=== PATIENT | female | born 1990 | race Caucasian/White ===

== ENCOUNTER 2020-04-23 05:43 | Inpatient (IN) ==
--- NOTE | 2020-04-22 13:46 | History & Physical Report ---
Date of Service April 22, 2020 39 weeks and 6 days discovered to be breech presentation patient declined version which I think is reasonable as she is essentially 40 weeks I recommended section we will perform this tomorrow Assessment & Plan (1) Breech presentation: Breech presentation discovered at 39 weeks and 6 days I have recommended she is agreeable normally I would provide COVID test per hospital policy however since this will be done within the next 24 hours and the cover test will be back I will not order if the rapid test we can do this tomorrow morning however our [facility] does not have any rapid tests as of this moment section. The patient was counseled to the nature of the procedure including alternatives such as labor. Risks were discussed including bleeding infection injury to bowel bladder ureter vessels and even baby. Deep Vein thrombosis, pulmonary embolus discussed. Breakdown of incision reviewed. Deep vein thrombosis pulmonary embolus hernia and failure of the incision to heal were discussed Patient verbalized understanding of this and was given ample time to ask questions History of Present Illness Primary Care Provider: Niko Whitman Allergies Allergy/AdvReac Type Severity Reaction Status Date / Time animal dander Allergy Intermediate ITCHY Verified 04/22/20 09:44 EYES, SNEEZING, CONGESTION pollen extracts Allergy Intermediate ITCHY Verified 04/22/20 09:44 EYES, SNEEZING, CONGESTION DUST Allergy Intermediate ITCHY Uncoded 04/22/20 09:44 EYES, SNEEZING, CONGESTION Home Medications Home Medications Medication Instructions Recorded Confirmed Type prenat.vits,jesse,[id number] 1 tab PO DAILY 10/06/19 04/22/20 History Patient History Medical History Chlamydia Varicella vaccination Surgical History S/P ACL repair S/P wisdom tooth extraction Family History Family/Other Cleft palate Social History Preferred Language: [place] Communication Ability: Effective Beliefs That Will Affect Care: None marital status: marital status details: Uriel Murphy (36) [phone] Current Living Situation: Spouse Current Living Situation Comment: lives with spouserupa current occupational status: employed current occupation: teacher [employer] [place] Feels Safe at Home: Yes Smoking Status: Never smoker Hx Alcohol Use: No Hx Substance Use: No Physical Exam Constitutional: WD/WN, vitals as above Respiratory: normal respiratory effort, lungs clear to auscultation Cardiovascular: RRR, no murmur, no edema Genitourinary: OB Exam Abdomen: + heart tones and + breech Coding Level of Care Code None Diagnoses Breech presentation O32.1XX0
[2020-04-23] MEDS ORDERED: SODIUM CHLORIDE 0.9% 250 ML IV PRN (05:51)
[2020-04-23] MEDS ORDERED: CITRIC ACID/SODIUM CITRATE 15 ML UDC PO SCH (06:00)
[2020-04-23] MEDS ORDERED: LR 15ML/HR IV SCH (06:00)
[2020-04-23] MEDS ORDERED: CEFAZOLIN 2000MG 2,000 MG/15 ML SYR IV SCH (06:00)
[2020-04-23 06:12] LABS: Basophils # (auto) 0.01 K/uL (0-0.2); Basophils % (auto) 0.1 %; Eosinophils # (auto) 0.16 K/uL (0-0.5); Eosinophils % (auto) 1.9 %; Hematocrit (blood only) 35.5 % (37-47); Hemoglobin 11.8 g/dL (12.0-16.0); Immature Granulocytes # (auto) 0.06 K/uL (0.00-0.02); Immature Granulocytes % (auto) 0.7 %; Lymphocytes # (auto) 2.17 K/uL (1.2-3.4); Lymphocytes % (auto) 25.8 %; Mean Corpuscular Hemoglobin 27.1 pg (25-34); Mean Corpuscular Volume 81.6 fL (80-100); Mean Platelet Volume 10.2 fL (7.4-10.4); Monocytes # (auto) 0.53 K/uL (0.11-0.59); Monocytes % (auto) 6.3 %; Neutrophils # (auto) 5.48 K/uL (1.4-6.5); Neutrophils % (auto) 65.2 %; Platelet Count 220 K/uL (130-400); RDW Coefficient of Variation 12.9 % (11.5-14.5); RDW Standard Deviation 38.1 fL (36.4-46.3); Red Blood Count 4.35 M/uL (4.2-5.4); White Blood Count 8.41 K/uL (4.8-10.8)
[2020-04-23 06:25] LABS: Mean Corpuscular Hgb Conc 33.2 g/dL (32-36)
[2020-04-23] MEDS ORDERED: LACTATED RINGER'S 1,000 ML IV SCH ×2 (06:30→09:36)
[2020-04-23] MEDS ORDERED: fentaNYL citrate 100 MCG/2 ML VIAL ONE (07:12)
[2020-04-23] MEDS ORDERED: MoRPHine SULFATE PF 1 MG/ML 10 ML AMP/VIAL ONE (07:12)
--- NOTE | 2020-04-23 07:18 | History & Physical Bridge Note ---
Date of Service April 23, 2020 History & Physical Bridge Note I have examined the patient, reviewed the History & Physical and in the interval since the performance of the History & Physical I have noted the following changes of clinical significance: no changes noted
--- NOTE | 2020-04-23 07:21 | Anesthesiology Consultation ---
Date of Service April 23, 2020 Assessment & Plan (1) Encounter for pre-operative examination: Chart Review Chart Review: Acceptable Risk for Surgery and Patient NOT seen in Pre Admission Testing Consults Requested none ASA ASA2 Proposed Anesthesia Anesthesia Type: Spinal Risk / Benefits Reviewed With: PT / POA / Parent / Guardian, Accepts Plan and Informed Consent Obtained History Surgery Operation Date: 04/23/20 07:30 Proposed Procedures p Section - Yolanda Gordon MD, FACOG Height/Weight Height: 5 ft 5 in Weight: 76.204 kg Allergies Allergy/AdvReac Type Severity Reaction Status Date / Time animal dander Allergy Intermediate ITCHY Verified 04/22/20 09:44 EYES, SNEEZING, CONGESTION pollen extracts Allergy Intermediate ITCHY Verified 04/22/20 09:44 EYES, SNEEZING, CONGESTION DUST Allergy Intermediate ITCHY Uncoded 04/22/20 09:44 EYES, SNEEZING, CONGESTION Medications Home Medications Medication Instructions Recorded Confirmed Last Taken prenat.vits,jesse,kcr-[id number] 1 tab PO DAILY 10/06/19 04/22/20 1 Day Ago ~04/11/20 0800 Active Medications Generic Name Dose Route Start Last Admin Trade Name Freq PRN Reason Stop Dose Admin Lactated Ringer's 1,000 mls @ 125 mls/hr 04/23/20 06:30 04/23/20 07:11 Lr IV 05/23/20 06:29 125 mls/hr .Q8H MIKE Administration NPO Date Last Intake of Fluids: 04/22/20 Time Last Intake of Fluids: 22:00 Date Last Intake of Solids: 04/22/20 Time Last Intake of Solids: 19:00 Past Medical History Medical History Chlamydia Varicella vaccination Exercise / Class Metabolic Activity II 4-5 Yardwork/Stairs/Walk up hill Past Family History Family History Family/Other Cleft palate Past Surgical History Surgical History S/P ACL repair S/P wisdom tooth extraction Past Anesthesia History No Hx of Anesthesia Complications History of PONV No Hx of PONV Social History Smoking Status: Never smoker Do You Dip or Chew Tobacco: No Hx Alcohol Use: No Hx Substance Use: No substance use type: does not use Review of Systems Patient denies history of abnormal bleeding or bleeding disorder. Patient denies active use of anticoagulants other than low dose aspirin. Patient denies numbness, tingling or weakness in lower extremities. Patient denies active symptoms of GERD. Negative for chest pain or shortness of breath. Physical Exam Vital Signs Last Vital Signs Temp 36.8 C 04/23/20 06:09 Pulse 83 04/23/20 05:56 Resp 20 04/23/20 06:09 BP 121/72 04/23/20 05:56 Constitutional not obese (Gravid uterus) ENMT Mouth: no TMJ abnormality and oral opening not small Thyromental Distance: > or= 3.5 Finger Breadths Mallampati Class: II Neck normal visual inspection; neck extension not limited Respiratory normal respiratory effort Auscultation: lungs clear to auscultation bilaterally Cardiovascular Rate/Rhythm: regular rate and regular rhythm Heart Sounds: no murmur Neurologic moves all extremities Motor/Sensory: no sensory deficit Psychiatric Orientation: alert and oriented x 3 Testing Laboratory Results 04/23/20 05:59 Blood Type O Positive 04/23/20 05:59 Antibody Screen NEGATIVE 04/23/20 05:59
[2020-04-23] MEDS ORDERED: OXYTOCIN 10 UNITS/ML VIAL ONE (08:38)
[2020-04-23] MEDS ORDERED: DiphenhydrAMINE HCL 50 MG/ML VIAL ONE (08:38)
[2020-04-23 09:17] LABS: Base Excess Cord Arterial Bld -1.4 mEq/L (-9-1.8); CO2 Cord Arterial Blood 59 mmHg (39.1-73.5); HCO3 Cord Arterial Blood 27 mmol/L (19.7-28.5); PO2 Cord Arterial Blood 21 mmHg (4.1-31.7); pH Cord Arterial Blood 7.27 (7.1-7.38)
--- NOTE | 2020-04-23 09:20 | Operative Report ---
PG Post Operative Report Pre & Post Diagnosis Operation Date: 04/23/20 07:30 Pre-Op Diagnosis: Term ; breech presentation Post-Op Diagnosis: term breech presentation living male child at 0849 I identified the patient and participated in the time-out.: Yes Procedure Operation Date: 04/23/20 07:30 <No data on this case meets the specified criteria> Low transverse section Surgeon Yolanda Gordon MD, FACOG Personal Property Appraiser Dr. Lopez Estimated Blood Loss 500 Findings Consistent with Post-Op Diagnosis Specimens Cord blood cord gases Description of Procedure Regional anesthetic was given by anesthesia patient had a [place] catheter inserted by nursing patient was prepped and draped in supine position with a le ftward tilt preoperative antibiotics were given timeout performed Pickups with teeth were used to test the skin site and it was found adequate for incision scalpel used to make a Pfannenstiel incision cutting down through subcutaneous fat through the fascia fascia was then dissected laterally with the curved Alonzo's fascia was released superiorly and inferiorly from the rectus muscles with the curved Alonzo scissors, rectus muscle split peritoneal cavity entered in a superior location. Opening enlarged to allow exposure bladder retractor placed Metzenbaums used to dissect away the bladder flap low segment transverse incision made on the uterus with scalpel entry was done bluntly with the multiple effect evaporator operator's finger hysterotomy incision extended with the multiple effect evaporator operator's finger in the usual fashion baby was delivered then by grasping the feet as it was in footling breech position gentle traction was placed baby's back was guided to be anterior but was unable to deliver both arms by sweeping them against the chest and then deliver the baby's head without excessive extension mouth and nares then suctioned no excessive force live vigorous infant cord clamped and cut cord gases obtained cord blood obtained placenta removed manually within ensured all placenta removed with a moist lap sponge uterus exteriorized IV Pitocin had been started by anesthesia and uterine tone improved. The uterus was closed in 2 layers first layer and 0 Monocryl running locked second layer 0 Monocryl nonlocked after generous irrigation and suction of the cul-de-sac and bladder flap regions hemostasis was excellent uterus was placed back in the peritoneal cavity and hemostasis was excellent rectus muscles were inspected and found to be dry fascia closed with 0 Vicryl subcutaneous fat closed with 3-0 Vicryl prior to this subcutaneous fat was irrigated skin closed with 4-0 subcuticular Monocryl incision Steri-Stripped urine was clear at the end of the procedure Note there were no structural anomalies with the uterus or adnexa no septum no bicornuate uterus I attest to the content of the Intraoperative Record and any orders documented therein. Any exceptions are noted below.
[2020-04-23 09:21] LABS: Base Excess Cord Venous Blood -1.5 mEq/L (-7.7-1.9); Cord Venous Blood HCO3 24 mmol/L (18.4-26.8); Cord Venous Blood PCO2 45 mmHg (30.4-57.2); Cord Venous Blood PO2 31 mmHg (14.1-43.3); Cord Venous Blood pH 7.35 (7.20-7.44); Oxygen Sat Cord Arterial Blood < 60.0 % (<60)
[2020-04-23] MEDS ORDERED: SUPERCREAM 0.870% 15 GM JAR EXT PRN (09:36)
[2020-04-23] MEDS ORDERED: BENZOCAINE 20% AER SPR 82.5 GM CAN EXT PRN (09:36)
[2020-04-23] MEDS ORDERED: PROMETHAZINE HCL 25 MG in SODIUM CHLORIDE 0.9% 50 ML IV PRN (09:36)
[2020-04-23] MEDS ORDERED: HYDROCORTISONE ACETATE 25 MG SUPP PR PRN (09:36)
[2020-04-23] MEDS ORDERED: SENNA 8.6 MG TAB PO PRN (09:36)
[2020-04-23] MEDS ORDERED: ONDANSETRON INJ 2 MG/ML 2 ML VIAL IV PRN ×2 (09:36→09:49)
[2020-04-23] MEDS ORDERED: MAGNESIUM HYDROXIDE SUSP 30 ML UDC PO PRN (09:36)
[2020-04-23] MEDS ORDERED: NALOXONE HCL 0.08 MG in SYRINGE 1.8 ML IV PRN (09:49)
[2020-04-23] MEDS ORDERED: NALOXONE HCL 0.4 MG/1 ML VIAL/CARP IV PRN (09:49)
[2020-04-23] MEDS ORDERED: ACETAMINOPHEN 1000 MG/100 ML IV IV PRN (09:49)
[2020-04-23] MEDS ORDERED: NALOXONE HCL 1 MG in SODIUM CHLORIDE 0.9% 1000ML 1,000 ML IV PRN (09:49)
[2020-04-23] MEDS ORDERED: MoRPHine SULFATE PF 1 MG/ML 10 ML AMP/VIAL INT SPINAL ONE (09:49)
[2020-04-23] MEDS ORDERED: LACTATED RINGER'S 500 ML IV PRN (09:49)
[2020-04-23] MEDS ORDERED: HYDROmorphone INJ 1 MG/ML SYRINGE IV PRN (09:49)
[2020-04-23] MEDS ORDERED: DiphenhydrAMINE HCL 50 MG/ML VIAL IV PRN (09:49)
[2020-04-23] MEDS ORDERED: ePHEDrine sulfate 50 MG/ML AMP IV PRN ×2 (09:49→09:54)
[2020-04-23] MEDS ORDERED: KETOROLAC 30 MG/ML VIAL IV PRN (09:49)
[2020-04-23] MEDS ORDERED: ATROPINE SULFATE 0.1 MG/ML 10ML SYR IV PRN (09:54)
[2020-04-23] MEDS ORDERED: NO NARCOTICS OR SEDATIVES SCH (10:00)
[2020-04-23] MEDS ORDERED: SODIUM CHLORIDE 0.9% 1000ML 1,000 ML IV SCH (10:00)
--- NOTE | 2020-04-23 10:00 | Anesthesiology Progress Note ---
Date of Service April 23, 2020 Anesthesia Post Procedure Vital Signs Vital Signs: Temp Pulse Resp BP Pulse Ox 04/23/20 09:57 74 125/74 04/23/20 09:56 80 100 04/23/20 09:54 85 91 04/23/20 09:53 73 122/71 04/23/20 09:51 81 100 04/23/20 09:46 79 95 04/23/20 09:45 81 93 04/23/20 09:41 74 100 04/23/20 09:37 78 129/65 04/23/20 09:36 72 100 04/23/20 09:31 72 99 04/23/20 09:26 68 120/69 99 04/23/20 07:00 36.9 C 20 04/23/20 06:09 36.8 C 20 04/23/20 06:00 36.8 C 20 04/23/20 05:56 83 121/72 Transfer of Care Handoff Completed per policy Notes Mental Status: alert / awake / arousable and participated in evaluation Nausea / Vomiting: adequately controlled Pain: adequately controlled Airway Patency, RR, SpO2: stable & adequate BP & HR: stable & adequate Hydration State: stable & adequate Neuraxial Anesthesia: was administered and sensory block is resolving Anesthetic Complications: no major complications apparent and Pt Satisfied with anesthetic care
[2020-04-23] MEDS: OXYTOCIN 20 UNITS in LACTATED RINGER'S 1,000 ML IV SCH ×2 (10:22→18:27)
[2020-04-23] MEDS: SIMETHICONE 80 MG CHEW PO SCH ×2 (16:59→21:09)
[2020-04-23] MEDS: DOCUSATE SODIUM 100 MG CAP PO SCH (21:08)
[2020-04-24] MEDS ORDERED: KETOROLAC 30 MG/ML VIAL IV PRN (03:49)
[2020-04-24] MEDS ORDERED: ONDANSETRON INJ 2 MG/ML 2 ML VIAL IV PRN (03:49)
[2020-04-24] MEDS ORDERED: OXYCODONE/ACETAMINOPHEN 5mg/325mg TAB PO PRN (03:49)
[2020-04-24] MEDS ORDERED: ZOLPIDEM TARTRATE 5 MG TAB PO PRN (03:49)
[2020-04-24] MEDS ORDERED: DiphenhydrAMINE HCL 50 MG/ML VIAL IV PRN (03:49)
[2020-04-24] MEDS ORDERED: MEPERIDINE HCL 50 MG/ML CARP IV PRN (03:49)
[2020-04-24] MEDS ORDERED: DC INTRASPINAL MORPHINE ONE (03:49)
--- NOTE | 2020-04-24 07:18 | Obstetrical Progress Note ---
Date of Service April 24, 2020 Assessment & Plan (1) state: Postoperative from section patient meets discharge criteria as she is ambulating well tolerating an oral diet has minimal bleeding and no extremity pain. Subjective Ambulation: ambulating normally Voiding: no voiding problems Diet Tolerance:: regular diet Lochia:: Small Feeding Type:: breast feeding Current Pain Level(1-10): 2 Physical Exam Constitutional WD/WN, vitals as above Respiratory normal respiratory effort, lungs clear to auscultation Cardiovascular RRR, no murmur, no edema Results & Data ([facility]) Vital Signs (Past 12 Hours) Vital Signs Temp Pulse Resp BP Pulse Ox 04/24/20 05:49 98.6 F 77 18 119/80 04/24/20 03:10 16 98 04/24/20 02:10 16 98 04/24/20 01:10 16 98 04/24/20 00:50 98.1 F 76 18 127/85 98 04/23/20 22:00 18 99 04/23/20 21:10 18 99 04/23/20 20:00 18 99 04/23/20 19:50 98.1 F 77 18 132/77 99
[2020-04-24] MEDS: SIMETHICONE 80 MG CHEW PO SCH ×3 (08:34→20:47)
[2020-04-24] MEDS: PRENATAL VITAMIN 1 TAB PO SCH (08:34)
[2020-04-24] MEDS: DOCUSATE SODIUM 100 MG CAP PO SCH ×2 (08:42→20:47)
[2020-04-24] MEDS ORDERED: DIPHTHERIA/TETANUS/PERTUSSIS 0.5 ML SYR/VIAL IM ONE (09:00)
[2020-04-24 09:29] LABS: Basophils # (auto) 0.01 K/uL (0-0.2); Basophils % (auto) 0.1 %; Eosinophils # (auto) 0.07 K/uL (0-0.5); Eosinophils % (auto) 0.7 %; Hematocrit (blood only) 33.3 % (37-47); Hemoglobin 11.2 g/dL (12.0-16.0); Immature Granulocytes # (auto) 0.03 K/uL (0.00-0.02); Immature Granulocytes % (auto) 0.3 %; Lymphocytes # (auto) 1.56 K/uL (1.2-3.4); Mean Corpuscular Hemoglobin 27.2 pg (25-34); Mean Corpuscular Hgb Conc 33.6 g/dL (32-36); Mean Corpuscular Volume 80.8 fL (80-100); Mean Platelet Volume 9.9 fL (7.4-10.4); Monocytes # (auto) 0.37 K/uL (0.11-0.59); Monocytes % (auto) 3.6 %; Neutrophils # (auto) 8.38 K/uL (1.4-6.5); Neutrophils % (auto) 80.3 %; Platelet Count 208 K/uL (130-400); RDW Coefficient of Variation 13.1 % (11.5-14.5); Red Blood Count 4.12 M/uL (4.2-5.4); White Blood Count 10.42 K/uL (4.8-10.8)
[2020-04-24] MEDS: IBUPROFEN 600 MG TAB PO PRN ×2 (14:40→19:39)
[2020-04-24] MEDS ORDERED: bisacodyL 5 MG TABEC PO SCH (20:00)
[2020-04-25] MEDS: IBUPROFEN 600 MG TAB PO PRN ×2 (00:14→08:48)
[2020-04-25 05:48] LABS: Hematocrit (blood only) 30.4 % (37-47); Hemoglobin 10.2 g/dL (12.0-16.0)
--- NOTE | 2020-04-25 08:36 | Obstetrical Progress Note ---
Date of Service April 25, 2020 Assessment & Plan (1) state: satisfactory & post-op progress wishes to go home scripts sent to pharmacy listed follow up in 6 weeks Day #:: 2 Subjective Ambulation: ambulating normally Voiding: no voiding problems Passing Gas:: Yes Diet Tolerance:: regular diet Lochia:: Moderate Feeding Type:: breast feeding pain meds working well Review of Systems All systems reviewed & are unremarkable except as noted in HPI & below Physical Exam Constitutional WD/WN, vitals as above Gastrointestinal (Abdomen) Inspection/Auscultation: + abdominal surgical incision (dry & intact- no erythema) Psychiatric A+Ox3, euthymic affect Genitourinary OB Exam Abdomen: + fundal height Fundus: + firm and + relation to umbilicus (2 below U) Results & Data ([facility]) Vital Signs (Past 12 Hours) Vital Signs Temp Pulse Resp BP 04/25/20 00:05 98.1 F 75 16 126/79
[2020-04-25] MEDS: SIMETHICONE 80 MG CHEW PO SCH (08:48)
[2020-04-25] MEDS: PRENATAL VITAMIN 1 TAB PO SCH (08:49)
[2020-04-25] MEDS: DOCUSATE SODIUM 100 MG CAP PO SCH (08:49)
[2020-04-25] MEDS ORDERED: bisacodyL 10 MG SUPP PR PRN (09:16)
--- NOTE | 2020-04-26 13:46 | Discharge Summary ---
Date of Service April 26, 2020 PPD 2 Admission Exam (Per Admitting) Constitutional WD/WN, vitals as above Respiratory normal respiratory effort, lungs clear to auscultation Cardiovascular RRR, no murmur, no edema Discharge Data Consultations 04/23/20 05:50 Consult Anesthesiology Stat Procedures Performed Operation Date: 04/23/20 07:30 Actual Procedures p Section(Bilateral) - Yolanda Gordon MD, FACOG Hospital Course (1) state: satisfactory & post-op progress wishes to go home scripts sent to pharmacy listed follow up in 6 weeks Coding Level of Care Code None Diagnoses state Z39.2
== END 2020-04-25 13:15 | disposition home or self-care (01) | DRG 788 ==
LOC: 4S1 05:43 → EDSTATUS 07:30 → 4S2 12:16